=== PATIENT | female | born 1970 | race Hispanic/Latino ===

== ENCOUNTER 2018-07-19 20:55 | Observation (INO) | payer SELFPAY ==
[2018-07-19 20:55] VITALS: BMI 61.2
--- NOTE | 2018-07-19 21:40 | C.PDOC ---
History Of Present Illness 48 year old morbidly obese female with a Hx of HTN presents to the ER with a complaint of left sided chest pain intermittently since yesterday, states midsternal pressure. no h/ o of stress test. associated with a dry cough. Denies fever or other complaints. Time Seen by Provider: 07/19/18 21:37 Chief Complaint (Nursing): Chest Pain History Per: Patient History/Exam Limitations: no limitations Onset/Duration Of Symptoms: Days (Yesterday), Intermittent Episodes Current Symptoms Are (Timing): Still Present Associated Symptoms: denies: Nausea, Dyspnea, Diaphoresis, Syncope Modifying Factors: None Exacerbating Factors: None Alleviating Factors: None Recent travel outside of the [place]: No Past Medical History Reviewed: Historical Data, Nursing Documentation, Vital Signs Vital Signs: Last Vital Signs Temp 98.2 F 07/19/18 21:06 Pulse 111 H 07/19/18 21:06 Resp 20 07/19/18 21:06 BP 136/82 07/19/18 21:06 Pulse Ox 100 07/19/18 21:06 - Medical History PMH: HTN Surgical History: Appendectomy - [facility] Procedures INJECT/INFUSE NEC (03/23/14) Family History: States: Unknown Family Hx - Social History Hx Tobacco Use: No Hx Alcohol Use: No Hx Substance Use: No - Immunization History Hx Tetanus Toxoid Vaccination: Yes Hx Influenza Vaccination: No Hx Pneumococcal Vaccination: No Review Of Systems Constitutional: Negative for: Fever, Chills Cardiovascular: Positive for: Chest Pain Respiratory: Positive for: Cough (Dry) Gastrointestinal: Negative for: Nausea, Vomiting Physical Exam - Physical Exam Appears: Non-toxic, Other (Morbidly obese) Skin: Normal Color, Warm, Dry Head: Atraumatic, Normacephalic Eye(s): bilateral: Normal Inspection Oral Mucosa: Moist Neck: Normal, Supple Chest: Symmetrical, No Tenderness Cardiovascular: Rhythm Regular Respiratory: Normal Breath Sounds, No Rales, No Rhonchi, No Wheezing Gastrointestinal/Abdominal: Soft, No Tenderness Back: No CVA Tenderness Neurological/Psych: Oriented x3, Normal Speech ED Course And Treatment - Laboratory Results Result Diagrams: 07/19/18 22:07 07/19/18 22:07 ECG: Interpreted By Me, Viewed By Me ECG Rhythm: Sinus Tachycardia ECG Interpretation: Normal Interpretation Of ECG: No ST/T wave changes Rate From EC O2 Sat by Pulse Oximetry: 100 (Room air) Pulse Ox Interpretation: Normal - Radiology CXR: Interpreted by Me, Viewed By Me CXR Interpretation: Yes: No Acute Disease. No: Infiltrates Medical Decision Making Medical Decision Making: cp ro acs pe EKG, blood work, and urinalysis ordered. cta neg asa given. accpeted by dr smith for obs. multiple cardiac rsik factor. Disposition - Disposition Disposition: HOSPITALIZED Disposition Time: 23:00 Condition: STABLE Forms: [employer] (Mauritian) - Clinical Impression Clinical Impression: Chest pain - Scribe Statement The provider has reviewed the documentation as recorded by the Scribe Krystian Mares All medical record entries made by the Scribe were at my direction and personally dictated by me. I have reviewed the chart and agree that the record accurately reflects my personal performance of the history, physical exam, medical decision making, and the department course for this patient. I have also personally directed, reviewed, and agree with the discharge instructions and disposition. Decision To Admit - Pt Status Changed To: Hospital Disposition Of: Observation - . Bed Request Type: Telemetry Admitting Physician: Best Smith Patient Diagnosis: Chest pain
[2018-07-19 22:11] LABS: BASO # 0.1 K/uL (0.0-0.2); EOS # 0.3 K/uL (0.0-0.7); EOS % 3.1 % (0.0-4.0); HEMOGLOBIN 11.2 g/dL (11.0-16.0); LYMPH # 3.4 K/uL (1.0-4.3); LYMPH % 39.5 % (20.0-40.0); MEAN CELL VOLUME 75.6 fL (81.0-99.0); MEAN CORPUSCULAR HEMOGLOBIN 24.9 pg (27.0-31.0); MEAN PLATELET VOLUME 8.9 fL (7.2-11.7); MONO # 0.8 K/uL (0.0-0.8); MONO % 9.4 % (0.0-10.0); RBC 4.51 Mil/uL (3.80-5.20); RED CELL DISTRIBUTION WIDTH 14.8 % (11.5-14.5); WHITE BLOOD COUNT 8.5 K/uL (4.8-10.8)
[2018-07-19 22:20] LABS: INR 1.1; PROTHROMBIN TIME 11.5 SECONDS (9.7-12.2)
[2018-07-19 22:29] LABS: ALBUMIN 4.3 g/dL (3.5-5.0); ALT/SGPT 21 U/L (9-52); AST/SGOT 25 U/L (14-36); BLOOD UREA NITROGEN 9 mg/dL (7-17); CALCIUM 9.2 mg/dl (8.6-10.4); GFR NON-AFRICAN AMERICAN > 60
[2018-07-19] MEDS ORDERED: Iodixanol 320 MG/ML 100 ML BOTTLE IV ONE (22:35)
[2018-07-19 22:41] LABS: SQUAMOUS EPITHIAL 2 /hpf (0-5); URINE BACTERIA MOD (<OCC); URINE BILIRUBIN NEGATIVE (NEGATIVE); URINE BLOOD 1+ (NEGATIVE); URINE CLARITY Clear (Clear); URINE COLOR Yellow (YELLOW); URINE GLUCOSE (UA) NORMAL (Normal); URINE LEUKOCYTE ESTERASE NEG Leu/uL (Negative); URINE PROTEIN NEGATIVE (NEGATIVE); URINE UROBILINOGEN NORMAL mg/dL (0.2-1.0)
[2018-07-19] MEDS ORDERED: cefTRIAXone 1 gm 1 GM/100 ML BAG IVPB ONE (23:24)
--- NOTE | 2018-07-19 23:46 | CP.PCM.HP ---
<Ariela Block P - Last Filed: 07/20/18 03:57> History of Present Illness - History of Present Illness History of Present Illness: H&P for hospitalist service. HPI: 48 year old female with PMHx of hypertension and obesity presents to the ED complaining of right sided chest pain that began yesterday while taking care of her grandchildren. Pain is described as sharp and stabbing and rated 6/10. Pain radiates to the right neck and right upper back. It worsens with movement, deep breathing, and swallowing. Pain improves with rest. Associated symptoms include intermittent nausea, mild dry cough and chills. Admits to heavy lifting. States she carries her 6 month old grandson and 5 year old grandaughter while babysitting them. Patient denies fever, palpitations, shortness of breath, diap horesis, rocha in vision, change in hearing, vomiting, diarrhea, abdominal pain, urinary frequency, dysuria, hematuria, melena, hematochezia, sick contacts, recent travel. PMHx: HTN, obesity PSHx: Appendectomy 20 years ago, 3 C-sections over 20 years ago Meds: Previously on Metoprolol Succinate 50mg daily, however has not been taking as cannot afford doctor's visit for refill. Allergies: NKDA Social: Denies tobacco, alcohol, drugs. Lives at home with , 2 children and 2 grandchildren. 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 Family Hx: Mother of vaginal cancer, father had DM, HTN and enlarged heart, Brother with enlarged heart, 2 sisters with chronic pain Advanced directive: Denies Proxy: : Marco Puente , Daughter: Manny Puente Code status: full code Present on Admission - Present on Admission Any Indicators Present on Admission: No Review of Systems - Constitutional Constitutional: Chills. absent: Fever, Frequent Falls, Headache, Increased Appetite, Malaise, Night Sweats, Snoring, Sleep Apnea - EENT Eyes: absent: Blind Spots, Blurred Vision, Change in Vision Nose/Mouth/Throat: absent: Nasal Congestion, Bleeding Gums, Dysphagia - Cardiovascular Cardiovascular: Chest Pain, Chest Pain with Activity. absent: Dyspnea on Exertion, Edema, Irregular Heart Rhythm, Leg Edema, Lightheadedness, Palpitations - Respiratory Respiratory: Cough (non-productive), Pain on Inspiration, Pain with Coughing. absent: Hemoptysis, Wheezing - Gastrointestinal Gastrointestinal: Nausea. absent: Abdominal Pain, Constipation, Diarrhea, Dysphagia, Heartburn, Hematochezia, Loose Stools, Melena, Vomiting - Genitourinary Genitourinary: absent: Difficulty Urinating, Dysuria, Hematuria, Nocturia, Urinary Frequency, Urinary Hesitance, Urinary Urgency - Musculoskeletal Musculoskeletal: Myalgias, Neck Pain - Integumentary Integumentary: absent: Change in Hair, Dry Skin, Pruritus, Rash, Skin Ulcer - Neurological Neurological: absent: Abnormal Speech, Dizziness, Numbness, Focal Weakness, Frequent Falls, Headaches, Loss of Vision, Memory Loss, Paresthesias, Radicular Pain, Syncope, Tingling, Tremor, Vertigo, Weakness - Hematologic/Lymphatic Hematologic: absent: Easy Bleeding, Easy Bruising Past Patient History - Infectious Disease Hx of Infectious Diseases: None - Past Social History Smoking Status: Never Smoked - CARDIAC Hx Hypertension: Yes - PSYCHIATRIC Hx Substance Use: No - SURGICAL HISTORY Hx Appendectomy: Yes - ANESTHESIA Hx Anesthesia: Yes Hx Anesthesia Reactions: No Meds Allergies/Adverse Reactions: Allergies Allergy/AdvReac Type Severity Reaction Status Date / Time No Known Allergies Allergy Verified 07/19/18 21:09 Physical Exam - Constitutional Appears: Non-toxic, No Acute Distress - Head Exam Head Exam: ATRAUMATIC, NORMOCEPHALIC - Eye Exam Eye Exam: EOMI, Normal appearance, PERRL - ENT Exam ENT Exam: Mucous Membranes Moist - Neck Exam Neck exam: Positive for: Full Rom, Normal Inspection, Tenderness (to cervical paraspinal muscles) - Respiratory Exam Respiratory Exam: Chest Wall Tenderness (to palpation of right chest ), Clear to Auscultation Bilateral, NORMAL BREATHING PATTERN. absent: Rales, Rhonchi, Wheezes - Cardiovascular Exam Cardiovascular Exam: Tachycardia, REGULAR RHYTHM, +S1, +S2. absent: JVD, Systolic Murmur - GI/Abdominal Exam GI & Abdominal Exam: Normal Bowel Sounds, Soft. absent: Distended, Firm, Guarding, Mass, Rebound, Rigid, Tenderness Additional comments: obese - Extremities Exam Extremities exam: Positive for: full ROM, normal capillary refill, normal inspection, pedal pulses present. Negative for: calf tenderness, joint swellin g, pedal edema, tenderness - Back Exam Additional comments: Tenderness and hypertonicity of R paracervical muscles and upper R trapezius. - Neurological Exam Neurological exam: Alert, CN II-XII Intact (grossly), Oriented x3 - Psychiatric Exam Psychiatric exam: Normal Affect, Normal Mood - Skin Skin Exam: Dry, Intact, Warm Additional comments: patches of brown skin noted to bilateral cheeks, otherwise normal. Results - Vital Signs Recent Vital Signs: Last Vital Signs Temp 98.8 F 07/19/18 22:40 Pulse 85 07/19/18 23:09 Resp 20 07/19/18 22:40 BP 114/74 07/19/18 22:40 Pulse Ox 99 07/19/18 22:40 - Labs Result Diagrams: 07/19/18 22:07 07/19/18 22:07 Labs: Laboratory Results - last 24 hr 07/19/18 07/19/18 07/19/18 22:07 22:07 22:07 WBC 8.5 RBC 4.51 Hgb 11.2 Hct 34.1 MCV 75.6 L MCH 24.9 L MCHC 33.0 RDW 14.8 H Plt Count 438 H D MPV 8.9 Neut % (Auto) 47.0 L Lymph % (Auto) 39.5 [place] % (Auto) 9.4 Eos % (Auto) 3.1 Baso % (Auto) 1.0 Neut # (Auto) 4.0 Lymph # (Auto) 3.4 [place] # (Auto) 0.8 Eos # (Auto) 0.3 Baso # (Auto) 0.1 PT 11.5 INR 1.1 APTT 28 D-Dimer, Quantitative 416 H Sodium 139 Potassium 3.7 Chloride 99 Carbon Dioxide 29 Anion Gap 14 BUN 9 Creatinine 0.6 L Est GFR ( Amer) > 60 Est GFR (Non-Af Amer) > 60 Random Glucose 103 Calcium 9.2 Total Bilirubin 0.4 AST 25 ALT 21 Alkaline Phosphatase 84 Troponin I < 0.0120 Total Protein 8.6 H Albumin 4.3 Globulin 4.2 H Albumin/Globulin Ratio 1.0 Urine Color Urine Clarity Urine pH Ur Specific [place] Urine Protein Urine Glucose (UA) Urine Ketones Urine Blood Urine Nitrate Urine Bilirubin Urine Urobilinogen Ur Leukocyte Esterase Urine WBC (Auto) Urine RBC (Auto) Ur Squamous Epith Cells Urine Bacteria Urine HCG, Qual 07/19/18 07/19/18 22:30 22:30 WBC RBC Hgb Hct MCV MCH MCHC RDW Plt Count MPV Neut % (Auto) Lymph % (Auto) [place] % (Auto) Eos % (Auto) Baso % (Auto) Neut # (Auto) Lymph # (Auto) [place] # (Auto) Eos # (Auto) Baso # (Auto) PT INR APTT D-Dimer, Quantitative Sodium Potassium Chloride Carbon Dioxide Anion Gap BUN Creatinine Est GFR ( Amer) Est GFR (Non-Af Amer) Random Glucose Calcium Total Bilirubin AST ALT Alkaline Phosphatase Troponin I Total Protein Albumin Globulin Albumin/Globulin Ratio Urine Color Yellow Urine Clarity Clear Urine pH 7.0 Ur Specific [place] 1.010 Urine Protein Negative Urine Glucose (UA) Normal Urine Ketones Negative Urine Blood 1+ H Urine Nitrate Positive H Urine Bilirubin Negative Urine Urobilinogen Normal Ur Leukocyte Esterase Neg Urine WBC (Auto) 2 Urine RBC (Auto) 3 Ur Squamous Epith Cells 2 Urine Bacteria Mod H Urine HCG, Qual Negative Assessment & Plan - Assessment and Plan (Free Text) Plan: 48 year old female with PMHx of hypertension and obesity presents to the ED complaining of right sided chest pain. Atypical Chest Pain -Likely secondary to muscle strain -EKG: NSR at 100, possible Q waves in leads 2 and 3 -Tropoin negative x2, follow with serial troponins at 4am and 10am -Observe on Tele -f/u TSH, T4 -f/u Mg, phosphorus -f/u lipid panel -UDS: negative -Tylenol 650mg PO Q6H PRN pain Possible UTI -UA:1+ blood, positive nitrate, moderate bacteria -Patient asymptomatic, dose of Rocephin started in ED -Rocephin 1gm IV x 1 day (07/20) -f/u urine culture and sensitivities Elevated D-dimer -D-dimer: 416 -Denies inactivity, recent surgery, or travel -CTA Chest: No evidence of central or segmental pulmonary embolism seen. (see full report) Abnormal RBC Indices -MCV: 75.6, MCH: 24.9, RDW: 14.8 -f/u total iron, ferritin, % saturation, TIBC -f/u stool occult blood -Patient has never had a colonoscopy. Patient counselled on importance of having a colonoscopy done as outpatient based on USPSTF and ACS guidelines. Thrombocytosis -Platelets: 438 -Likely secondary to acute phase reactant -Continue to monitor Hx of HTN -Patient previously on Metoprolol XL 50mg daily, however states she has not been taking it, as she has not been able to afford a doctor's visit for a refill. -Patient advised to follow up at [facility]. -Restart Metoprolol XL 50mg daily Obesity III -BMI: 44.9 -f/u TSH, T4 -f/u Lipid panel -f/u HgbA1c Prophylaxis -Lactobacillus 1cap PO Q12H -DVT risk score of 3 (age, BMI)-> start Lovenox 40mg SQ Q24H -Heart Healthy, 2gm sodium, low carb diet -GI prophylaxis not indicated at this time Case discussed with attending physician, Dr. Alvarez. <Best Alvarez - Last Filed: 07/21/18 02:16> Results - Vital Signs Recent Vital Signs: Last Vital Signs Temp 98.7 F 07/20/18 08:48 Pulse 61 07/20/18 08:48 Resp 17 07/20/18 08:48 BP 105/66 07/20/18 08:48 Pulse Ox 62 L 07/20/18 08:48 - Labs Result Diagrams: 07/20/18 05:02 07/20/18 05:02 Labs: Laboratory Results - last 24 hr 07/20/18 07/20/18 07/20/18 05:02 05:02 05:02 WBC RBC Hgb Hct MCV MCH MCHC RDW Plt Count MPV Neut % (Auto) Lymph % (Auto) [place] % (Auto) Eos % (Auto) Baso % (Auto) Neut # (Auto) Lymph # (Auto) [place] # (Auto) Eos # (Auto) Baso # (Auto) Sodium 138 Potassium 3.4 L Chloride 103 Carbon Dioxide 26 Anion Gap 13 BUN 6 L Creatinine 0.4 L Est GFR ( Amer) > 60 Est GFR (Non-Af Amer) > 60 Random Glucose 93 Hemoglobin A1c Calcium 8.4 L Phosphorus 3.8 Magnesium 1.8 % Saturation 10 L Ferritin 6.1 Troponin I < 0.0120 Triglycerides 66 Cholesterol 151 LDL Cholesterol Direct 91 HDL Cholesterol 45 Free T4 1.08 TSH 3rd Generation 3.34 07/20/18 07/20/18 07/20/18 05:02 05:02 05:02 WBC 7.4 RBC 4.41 Hgb 10.7 L Hct 33.1 L MCV 75.0 L MCH 24.3 L MCHC 32.4 L RDW 14.9 H Plt Count 414 H MPV 8.6 Neut % (Auto) 45.0 L Lymph % (Auto) 42.2 H [place] % (Auto) 9.4 Eos % (Auto) 2.6 Baso % (Auto) 0.8 Neut # (Auto) 3.3 Lymph # (Auto) 3.1 [place] # (Auto) 0.7 Eos # (Auto) 0.2 Baso # (Auto) 0.1 Sodium Potassium Chloride Carbon Dioxide Anion Gap BUN Creatinine Est GFR ( Amer) Est GFR (Non-Af Amer) Random Glucose Hemoglobin A1c 5.8 Calcium Phosphorus Magnesium % Saturation Ferritin Troponin I < 0.0120 Triglycerides Cholesterol LDL Cholesterol Direct HDL Cholesterol Free T4 TSH 3rd Generation 07/20/18 12:14 WBC RBC Hgb Hct MCV MCH MCHC RDW Plt Count MPV Neut % (Auto) Lymph % (Auto) [place] % (Auto) Eos % (Auto) Baso % (Auto) Neut # (Auto) Lymph # (Auto) [place] # (Auto) Eos # (Auto) Baso # (Auto) Sodium Potassium Chloride Carbon Dioxide Anion Gap BUN Creatinine Est GFR ( Amer) Est GFR (Non-Af Amer) Random Glucose Hemoglobin A1c Calcium Phosphorus Magnesium % Saturation Ferritin Troponin I < 0.0120 Triglycerides Cholesterol LDL Cholesterol Direct HDL Cholesterol Free T4 TSH 3rd Generation Attending/Attestation - Attestation I have personally seen and examined this patient.: Yes I have fully participated in the care of the patient.: Yes I have reviewed all pertinent clinical information: Yes Notes (Text): 07/21/18 02:15 This is a late entry. The patient was seen and examined with resident Dr. Block at the time of admission. History, Physical, Assessment and Plan, and all orders were gone over in detail with Dr. Block. Plan of care was also explained to the patient. Best Alvarez D.O.
[2018-07-20 01:14] LABS: BARBITURATES, UR NEGATIVE (NEGATIVE); BENZODIAZEPINES, UR NEGATIVE (NEGATIVE); OPIATES, UR NEGATIVE (NEGATIVE); PHENCYCLIDINE, UR NEGATIVE (NEGATIVE)
[2018-07-20] MEDS ORDERED: Enoxaparin 40 mg Syringe ONE (04:39)
[2018-07-20 05:06] LABS: BASO # 0.1 K/uL (0.0-0.2); BASO % 0.8 % (0.0-2.0); EOS # 0.2 K/uL (0.0-0.7); EOS % 2.6 % (0.0-4.0); HEMOGLOBIN 10.7 g/dL (11.0-16.0); LYMPH # 3.1 K/uL (1.0-4.3); LYMPH % 42.2 % (20.0-40.0); MEAN CORPUSCULAR HEMOGLOBIN 24.3 pg (27.0-31.0); MEAN CORPUSCULAR HGB CONC 32.4 g/dL (33.0-37.0); MEAN PLATELET VOLUME 8.6 fL (7.2-11.7); MONO # 0.7 K/uL (0.0-0.8); MONO % 9.4 % (0.0-10.0); NEUT # 3.3 K/uL (1.8-7.0); RBC 4.41 Mil/uL (3.80-5.20); RED CELL DISTRIBUTION WIDTH 14.9 % (11.5-14.5); WHITE BLOOD COUNT 7.4 K/uL (4.8-10.8)
[2018-07-20 05:34] LABS: LDL CHOLESTEROL 91 mg/dL (0-129)
[2018-07-20 05:58] LABS: FERRITIN 6.1 ng/mL
[2018-07-20 06:29] LABS: BLOOD UREA NITROGEN 6 mg/dL (7-17); CALCIUM 8.4 mg/dl (8.6-10.4); GFR NON-AFRICAN AMERICAN > 60; HDL CHOLESTEROL 45 mg/dL (30-70)
[2018-07-20] MEDS ORDERED: Lactobacillus Acidophilus 500 MU Cap PO SCH (08:00)
--- NOTE | 2018-07-20 08:17 | CT ---
Date of service: 07/19/2018 PROCEDURE: CT Chest with contrast (Pulmonary Angiogram) HISTORY: cp elevated dimer COMPARISON: Comparison is made to the previous study dated 10/18/2015 TECHNIQUE: Axial computed tomography images were obtained of the chest in the pulmonary arterial phase of enhancement. Coronal and sagittal reformatted images were created and reviewed. Intravenous contrast dose: 100 mL of Visipaque 320 intravenously Radiation dose: Total exam DLP = 437.65 mGy-cm. This CT exam was performed using one or more of the following dose reduction techniques: Automated exposure control, adjustment of the mA and/or kV according to patient size, and/or use of iterative reconstruction technique. FINDINGS: PULMONARY ARTERIES: Suboptimal opacification of pulmonary arteries. No pulmonary embolism. AORTA: No acute findings. No thoracic aortic aneurysm. No aortic atherosclerotic calcification or mural plaque present. LUNGS: Unremarkable. No nodule, mass or pulmonary consolidation. PLEURAL SPACES: Unremarkable. No effusion or pneumothorax. HEART: Upper normal limit/mildly enlarged. . No significant pericardial effusion. LYMPH NODES: No lymphadenopathy. BONES, CHEST WALL: Unremarkable. No fracture or destructive lesion OTHER FINDINGS: Unremarkable. IMPRESSION: No pulmonary embolus. No evidence of acute pulmonary disease. Preliminary report contains concordant findings was submitted by [facility].
[2018-07-20 08:51] VITALS: BP 105/66; PULSE 61; RESP 17; TEMP 98.7; O2SAT 62
--- NOTE | 2018-07-20 08:57 | RAD ---
Date of service: 07/19/2018 PROCEDURE: CHEST RADIOGRAPH, 1 VIEW HISTORY: chest pain COMPARISON: 05/16/2016. FINDINGS: LUNGS: The lungs are well inflated and clear. PLEURA: No pneumothorax or pleural effusion. CARDIOVASCULAR: The heart is normal in size. No aortic atherosclerotic calcifications present. OSSEOUS STRUCTURES: Within normal limits for the patient's age. VISUALIZED UPPER ABDOMEN: Normal. OTHER FINDINGS: None. IMPRESSION: No active pulmonary disease.
--- NOTE | 2018-07-20 09:42 | CP.PCM.PN ---
Subjective - Date & Time of Evaluation Date of Evaluation: 07/20/18 Time of Evaluation: 09:42 Objective - Vital Signs/Intake and Output Vital Signs (last 24 hours): Temp Pulse Resp BP Pulse Ox 98.7 F 61 17 105/66 62 L 07/20/18 08:48 07/20/18 08:48 07/20/18 08:48 07/20/18 08:48 07/20/18 08:48 - Medications Medications: Current Medications Acetaminophen (Tylenol 325mg Tab) 650 mg PO Q6H PRN PRN Reason: Pain, moderate (4-7) Last Admin: 07/20/18 03:00 Dose: 650 mg Enoxaparin Sodium (Lovenox) 40 mg SC DAILY AMMY Last Admin: 07/20/18 00:00 Dose: 40 mg Ceftriaxone Sodium 1 gm/ (Sodium Chloride) 100 mls @ 100 mls/hr IVPB DAILY AMMY; Protocol Lactobacillus Acidophilus (Bacid Acidophilus) 1 cap PO Q12H AMMY Metoprolol Succinate (Toprol Xl) 50 mg PO DAILY AMMY - Labs Labs: 07/20/18 05:02 07/20/18 05:02 PT 11.5 SECONDS (9.7-12.2) 07/19/18 22:07 INR 1.1 07/19/18 22:07 APTT 28 SECONDS (21-34) 07/19/18 22:07
[2018-07-20] MEDS ORDERED: Metoprolol Succinate 50 mg XL Tab PO SCH (10:00)
[2018-07-20] MEDS: Enoxaparin 40 mg Syringe SC SCH ×2 (11:09)
--- NOTE | 2018-07-20 11:27 | CP.PCM.DIS ---
<Daniel Jj - Last Filed: 07/20/18 16:26> Provider - Provider Date of Admission: 07/19/18 23:29 Attending physician: Best Alvarez MD Time Spent in preparation of Discharge (in minutes): 45 Diagnosis - Discharge Diagnosis (1) Musculoskeletal chest pain Status: Acute (2) Neck pain Status: Acute Hospital Course - Lab Results Lab Results: Most Recent Lab Values WBC 7.4 K/uL (4.8-10.8) 07/20/18 05:02 RBC 4.41 Mil/uL (3.80-5.20) 07/20/18 05:02 Hgb 10.7 g/dL (11.0-16.0) L 07/20/18 05:02 Hct 33.1 % (34.0-47.0) L 07/20/18 05:02 MCV 75.0 fL (81.0-99.0) L 07/20/18 05:02 MCH 24.3 pg (27.0-31.0) L 07/20/18 05:02 MCHC 32.4 g/dL (33.0-37.0) L 07/20/18 05:02 RDW 14.9 % (11.5-14.5) H 07/20/18 05:02 Plt Count 414 K/uL (130-400) H 07/20/18 05:02 MPV 8.6 fL (7.2-11.7) 07/20/18 05:02 Neut % (Auto) 45.0 % (50.0-75.0) L 07/20/18 05:02 Lymph % (Auto) 42.2 % (20.0-40.0) H 07/20/18 05:02 [place] % (Auto) 9.4 % (0.0-10.0) 07/20/18 05:02 Eos % (Auto) 2.6 % (0.0-4.0) 07/20/18 05:02 Baso % (Auto) 0.8 % (0.0-2.0) 07/20/18 05:02 Neut # (Auto) 3.3 K/uL (1.8-7.0) 07/20/18 05:02 Lymph # (Auto) 3.1 K/uL (1.0-4.3) 07/20/18 05:02 [place] # (Auto) 0.7 K/uL (0.0-0.8) 07/20/18 05:02 Eos # (Auto) 0.2 K/uL (0.0-0.7) 07/20/18 05:02 Baso # (Auto) 0.1 K/uL (0.0-0.2) 07/20/18 05:02 PT 11.5 SECONDS (9.7-12.2) 07/19/18 22:07 INR 1.1 07/19/18 22:07 APTT 28 SECONDS (21-34) 07/19/18 22:07 D-Dimer, Quantitative 416 ng/mlDDU (0-243) H 07/19/18 22:07 Sodium 138 mmol/L (132-148) 07/20/18 05:02 Potassium 3.4 mmol/L (3.6-5.2) L 07/20/18 05:02 Chloride 103 mmol/L (98-107) 07/20/18 05:02 Carbon Dioxide 26 mmol/L (22-30) 07/20/18 05:02 Anion Gap 13 (10-20) 07/20/18 05:02 BUN 6 mg/dL (7-17) L 07/20/18 05:02 Creatinine 0.4 mg/dL (0.7-1.2) L 07/20/18 05:02 Est GFR ( Amer) > 60 07/20/18 05:02 Est GFR (Non-Af Amer) > 60 07/20/18 05:02 Random Glucose 93 mg/dL (65-105) 07/20/18 05:02 Hemoglobin A1c 5.8 % (4.2-6.5) 07/20/18 05:02 Calcium 8.4 mg/dl (8.6-10.4) L 07/20/18 05:02 Phosphorus 3.8 mg/dL (2.5-4.5) 07/20/18 05:02 Magnesium 1.8 mg/dL (1.6-2.3) 07/20/18 05:02 % Saturation 10 (20-55) L 07/20/18 05:02 Ferritin 6.1 ng/mL 07/20/18 05:02 Total Bilirubin 0.4 mg/dL (0.2-1.3) 07/19/18 22:07 AST 25 U/L (14-36) 07/19/18 22:07 ALT 21 U/L (9-52) 07/19/18 22:07 Alkaline Phosphatase 84 U/L (38-126) 07/19/18 22:07 Troponin I < 0.0120 ng/mL (0.00-0.120) 07/20/18 05:02 Total Protein 8.6 g/dL (6.3-8.3) H 07/19/18 22:07 Albumin 4.3 g/dL (3.5-5.0) 07/19/18 22:07 Globulin 4.2 gm/dL (2.2-3.9) H 07/19/18 22:07 Albumin/Globulin Ratio 1.0 (1.0-2.1) 07/19/18 22:07 Triglycerides 66 mg/dL (0-149) 07/20/18 05:02 Cholesterol 151 mg/dL (0-199) 07/20/18 05:02 LDL Cholesterol Direct 91 mg/dL (0-129) 07/20/18 05:02 HDL Cholesterol 45 mg/dL (30-70) 07/20/18 05:02 Free T4 1.08 ng/dL (0.78-2.19) 07/20/18 05:02 TSH 3rd Generation 3.34 mIU/L (0.46-4.68) 07/20/18 05:02 Urine Color Yellow (YELLOW) 07/19/18 22:30 Urine Clarity Clear (Clear) 07/19/18 22:30 Urine pH 7.0 (5.0-8.0) 07/19/18 22:30 Ur Specific [place] 1.010 (1.003-1.030) 07/19/18 22:30 Urine Protein Negative mg/dL (NEGATIVE) 07/19/18 22:30 Urine Glucose (UA) Normal mg/dL (Normal) 07/19/18 22:30 Urine Ketones Negative mg/dL (NEGATIVE) 07/19/18 22:30 Urine Blood 1+ (NEGATIVE) H 07/19/18 22:30 Urine Nitrate Positive (NEGATIVE) H 07/19/18 22:30 Urine Bilirubin Negative (NEGATIVE) 07/19/18 22:30 Urine Urobilinogen Normal mg/dL (0.2-1.0) 07/19/18 22:30 Ur Leukocyte Esterase Neg [place]/uL (Negative) 07/19/18 22:30 Urine WBC (Auto) 2 /hpf (0-5) 07/19/18 22:30 Urine RBC (Auto) 3 /hpf (0-3) 07/19/18 22:30 Ur Squamous Epith Cells 2 /hpf (0-5) 07/19/18 22:30 Urine Bacteria Mod (<OCC) H 07/19/18 22:30 Urine HCG, Qual Negative (NEGATIVE) 07/19/18 22:30 Urine Opiates Screen Negative (NEGATIVE) 07/20/18 00:55 Urine Methadone Screen Negative (NEGATIVE) 07/20/18 00:55 Ur Barbiturates Screen Negative (NEGATIVE) 07/20/18 00:55 Ur Phencyclidine Scrn Negative (NEGATIVE) 07/20/18 00:55 Ur Amphetamines Screen Negative (NEGATIVE) 07/20/18 00:55 U Benzodiazepines Scrn Negative (NEGATIVE) 07/20/18 00:55 U Oth Cocaine Metabols Negative (NEGATIVE) 07/20/18 00:55 U Cannabinoids Screen Negative (NEGATIVE) 07/20/18 00:55 - Hospital Course Hospital Course: 48 year old female with PMHx of hypertension and obesity presents to the ED complaining of right sided chest pain that began yesterday while taking care of her grandchildren. Pain is described as sharp and stabbing and rated 6/10. Pain radiates to the right neck and right upper back. EKG showed NSR at 100. Troponins were negative x3. CXR showed no active disease. Chest CT showed no PE, no acute pulmonary disease. UA was positive for nitrates and bacteria, patient is asymptomatic. Over the course of her stay, patient was treated with tylenol, rocephin, lovenox, and metoprolol. Upon discharge, patient was instructed to take Ciprofloxacin 500mg once daily by mouth for 3 days and Cyclobenzaprine 10mg once at bedtime as needed for pain. Also to resume all medications as prescribed by your primary care doctor. She was instructed to follow up with your primary care doctor or [facility] clinic. She was also instructed to return to the emergency room for worsening or newly-concerning symptoms. Patient is m edically stable for discharge to home. Discharge Exam - Head Exam Head Exam: ATRAUMATIC, NORMOCEPHALIC - Additional Findings Additional findings: - Constitutional Appears: Non-toxic, No Acute Distress - Head Exam Head Exam: ATRAUMATIC, NORMOCEPHALIC - Eye Exam Eye Exam: EOMI, Normal appearance, PERRL - ENT Exam ENT Exam: Mucous Membranes Moist - Neck Exam Neck exam: Positive for: Full Rom, Normal Inspection, Tenderness (to cervical paraspinal muscles) - Respiratory Exam Respiratory Exam: Chest Wall Tenderness (to palpation of right chest ), Clear to Auscultation Bilateral, NORMAL BREATHING PATTERN. absent: Rales, Rhonchi, Wheezes - Cardiovascular Exam Cardiovascular Exam: Tachycardia, REGULAR RHYTHM, +S1, +S2. absent: JVD, Systolic Murmur - GI/Abdominal Exam GI & Abdominal Exam: Normal Bowel Sounds, Soft. absent: Distended, Firm, Guarding, Mass, Rebound, Rigid, Tenderness Additional comments: obese - Extremities Exam Extremities exam: Positive for: full ROM, normal capillary refill, normal inspection, pedal pulses present. Negative for: calf tenderness, joint swelling, pedal edema, tenderness - Back Exam Additional comments: Tenderness and hypertonicity of R paracervical muscles and upper R trapezius. - Neurological Exam Neurological exam: Alert, CN II-XII Intact (grossly), Oriented x3 - Psychiatric Exam Psychiatric exam: Normal Affect, Normal Mood - Skin Skin Exam: Dry, Intact, Warm Additional comments: patches of brown skin noted to bilateral cheeks, otherwise normal. Discharge Plan - Discharge Medications Prescriptions: RX: Ciprofloxacin HCl [Cipro] 500 mg PO DAILY #3 tablet RX: Cyclobenzaprine HCl 10 mg PO HS PRN #10 tablet PRN Reason: Pain, Moderate (4-7) RX: Metoprolol Succinate XL [Toprol XL] 50 mg PO DAILY #30 tab - Follow Up Plan Condition: STABLE Disposition: HOME/ ROUTINE Instructions: High Blood Pressure in Adults, Ciprofloxacin (Systemic), Heart Healthy Diet, Urinary Tract Infection, Adult (DC), Chest Pain (DC), Cyclobenzaprine Additional Instructions: 1. Please take Ciprofloxacin 500mg once daily by mouth for 3 days and Cyclobenzaprine 10mg once at bedtime as needed for pain. 2. Resume all medications as prescribed by your primary care doctor. 3. Follow up with your primary care doctor or [facility] 4. Resume diet and activity as tolerated. Get plenty of rest and avoid any heavy lifting. 5. Return to the emergency room for worsening or newly-concerning symptoms. Referrals: [facility] [Outside] <Simi Correa - Last Filed: 07/20/18 17:54> Provider - Provider Date of Admission: 07/19/18 23:29 Attending physician: Best Alvarez MD Hospital Course - Lab Results Lab Results: Most Recent Lab Values WBC 7.4 K/uL (4.8-10.8) 07/20/18 05:02 RBC 4.41 Mil/uL (3.80-5.20) 07/20/18 05:02 Hgb 10.7 g/dL (11.0-16.0) L 07/20/18 05:02 Hct 33.1 % (34.0-47.0) L 07/20/18 05:02 MCV 75.0 fL (81.0-99.0) L 07/20/18 05:02 MCH 24.3 pg (27.0-31.0) L 07/20/18 05:02 MCHC 32.4 g/dL (33.0-37.0) L 07/20/18 05:02 RDW 14.9 % (11.5-14.5) H 07/20/18 05:02 Plt Count 414 K/uL (130-400) H 07/20/18 05:02 MPV 8.6 fL (7.2-11.7) 07/20/18 05:02 Neut % (Auto) 45.0 % (50.0-75.0) L 07/20/18 05:02 Lymph % (Auto) 42.2 % (20.0-40.0) H 07/20/18 05:02 [place] % (Auto) 9.4 % (0.0-10.0) 07/20/18 05:02 Eos % (Auto) 2.6 % (0.0-4.0) 07/20/18 05:02 Baso % (Auto) 0.8 % (0.0-2.0) 07/20/18 05:02 Neut # (Auto) 3.3 K/uL (1.8-7.0) 07/20/18 05:02 Lymph # (Auto) 3.1 K/uL (1.0-4.3) 07/20/18 05:02 [place] # (Auto) 0.7 K/uL (0.0-0.8) 07/20/18 05:02 Eos # (Auto) 0.2 K/uL (0.0-0.7) 07/20/18 05:02 Baso # (Auto) 0.1 K/uL (0.0-0.2) 07/20/18 05:02 PT 11.5 SECONDS (9.7-12.2) 07/19/18 22:07 INR 1.1 07/19/18 22:07 APTT 28 SECONDS (21-34) 07/19/18 22:07 D-Dimer, Quantitative 416 ng/mlDDU (0-243) H 07/19/18 22:07 Sodium 138 mmol/L (132-148) 07/20/18 05:02 Potassium 3.4 mmol/L (3.6-5.2) L 07/20/18 05:02 Chloride 103 mmol/L (98-107) 07/20/18 05:02 Carbon Dioxide 26 mmol/L (22-30) 07/20/18 05:02 Anion Gap 13 (10-20) 07/20/18 05:02 BUN 6 mg/dL (7-17) L 07/20/18 05:02 Creatinine 0.4 mg/dL (0.7-1.2) L 07/20/18 05:02 Est GFR ( Amer) > 60 07/20/18 05:02 Est GFR (Non-Af Amer) > 60 07/20/18 05:02 Random Glucose 93 mg/dL (65-105) 07/20/18 05:02 Hemoglobin A1c 5.8 % (4.2-6.5) 07/20/18 05:02 Calcium 8.4 mg/dl (8.6-10.4) L 07/20/18 05:02 Phosphorus 3.8 mg/dL (2.5-4.5) 07/20/18 05:02 Magnesium 1.8 mg/dL (1.6-2.3) 07/20/18 05:02 % Saturation 10 (20-55) L 07/20/18 05:02 Ferritin 6.1 ng/mL 07/20/18 05:02 Total Bilirubin 0.4 mg/dL (0.2-1.3) 07/19/18 22:07 AST 25 U/L (14-36) 07/19/18 22:07 ALT 21 U/L (9-52) 07/19/18 22:07 Alkaline Phosphatase 84 U/L (38-126) 07/19/18 22:07 Troponin I < 0.0120 ng/mL (0.00-0.120) 07/20/18 12:14 Total Protein 8.6 g/dL (6.3-8.3) H 07/19/18 22:07 Albumin 4.3 g/dL (3.5-5.0) 07/19/18 22:07 Globulin 4.2 gm/dL (2.2-3.9) H 07/19/18 22:07 Albumin/Globulin Ratio 1.0 (1.0-2.1) 07/19/18 22:07 Triglycerides 66 mg/dL (0-149) 07/20/18 05:02 Cholesterol 151 mg/dL (0-199) 07/20/18 05:02 LDL Cholesterol Direct 91 mg/dL (0-129) 07/20/18 05:02 HDL Cholesterol 45 mg/dL (30-70) 07/20/18 05:02 Free T4 1.08 ng/dL (0.78-2.19) 07/20/18 05:02 TSH 3rd Generation 3.34 mIU/L (0.46-4.68) 07/20/18 05:02 Urine Color Yellow (YELLOW) 07/19/18 22:30 Urine Clarity Clear (Clear) 07/19/18 22:30 Urine pH 7.0 (5.0-8.0) 07/19/18 22:30 Ur Specific [place] 1.010 (1.003-1.030) 07/19/18 22:30 Urine Protein Negative mg/dL (NEGATIVE) 07/19/18 22:30 Urine Glucose (UA) Normal mg/dL (Normal) 07/19/18 22:30 Urine Ketones Negative mg/dL (NEGATIVE) 07/19/18 22:30 Urine Blood 1+ (NEGATIVE) H 07/19/18 22:30 Urine Nitrate Positive (NEGATIVE) H 07/19/18 22:30 Urine Bilirubin Negative (NEGATIVE) 07/19/18 22:30 Urine Urobilinogen Normal mg/dL (0.2-1.0) 07/19/18 22:30 Ur Leukocyte Esterase Neg [place]/uL (Negative) 07/19/18 22:30 Urine WBC (Auto) 2 /hpf (0-5) 07/19/18 22:30 Urine RBC (Auto) 3 /hpf (0-3) 07/19/18 22:30 Ur Squamous Epith Cells 2 /hpf (0-5) 07/19/18 22:30 Urine Bacteria Mod (<OCC) H 07/19/18 22:30 Urine HCG, Qual Negative (NEGATIVE) 07/19/18 22:30 Urine Opiates Screen Negative (NEGATIVE) 07/20/18 00:55 Urine Methadone Screen Negative (NEGATIVE) 07/20/18 00:55 Ur Barbiturates Screen Negative (NEGATIVE) 07/20/18 00:55 Ur Phencyclidine Scrn Negative (NEGATIVE) 07/20/18 00:55 Ur Amphetamines Screen Negative (NEGATIVE) 07/20/18 00:55 U Benzodiazepines Scrn Negative (NEGATIVE) 07/20/18 00:55 U Oth Cocaine Metabols Negative (NEGATIVE) 07/20/18 00:55 U Cannabinoids Screen Negative (NEGATIVE) 07/20/18 00:55 Attending/Attestation - Attestation I have personally seen and examined this patient.: Yes I have fully participated in the care of the patient.: Yes I have reviewed all pertinent clinical information, including history, physical exam and plan: Yes
[2018-07-20] MEDS ORDERED: Influenza Vaccine 60 MCG/0.5 ML SYR (3 yr & up) IM ONE (13:00)
--- NOTE | 2018-07-20 23:36 | CARD ---
APPROVED REPORT Date of service: 07/19/2018 EKG Measurement Heart [id number] <Conclusion> Sinus tachycardia Cannot rule out Inferior infarct, age undetermined Abnormal ECG
[2018-07-21] MEDS ORDERED: Influenza Vaccine 60 MCG/0.5 ML SYR (3 yr & up) IM ONE (10:00)
[2018-07-21] MEDS ORDERED: Pneumococcal 23-Valent Vaccine IM ONE (10:00)
== END 2018-07-20 14:15 | disposition home or self-care (01) ==
LOC: C.ER 20:55 → C.9E 23:29 → C.5S 07-20 09:16
PROVIDERS: ADMIT Family Medicine; ATTEND Family Medicine
DX: R07.89 Other chest pain (principal); M54.2 Cervicalgia; I10 Essential (primary) hypertension; E66.9 Obesity, unspecified; R79.1 Abnormal coagulation profile; Z90.49 Acquired absence of other specified parts of digestive tract
CPT/HCPCS: 36415; 71045; 71275; 80048; 80053; 80061; 81001; 82728; 83036; 83735; 84100; 84439; 84443; 84484; 84703; 85025; 85378; 85610; 85730; 87086; 87181; 90674; 93005; 96365; 96372; 99285; G0008; G0378; G0480; J0696; J1650; Q9967

== ENCOUNTER 2018-07-31 23:26 | Emergency (ER) | payer SELFPAY ==
[2018-07-31 23:26] VITALS: BMI 61.2
[2018-07-31 23:42] VITALS: BP 135/85; PULSE 120; RESP 20; TEMP 98.4; O2SAT 100
--- NOTE | 2018-08-01 00:05 | C.PDOC ---
History Of Present Illness 48 year old female presents to the ER with a complaint of right shoulder pain intermittently for the past 2 weeks. Patient was seen 2 weeks ago for similar complaint, she has been on motrin since then with no relief, she was advised to follow up with PMD but has not been able to. Denies trauma, weakness, numbness, chest pain, or SOB. Time Seen by Provider: 07/31/18 23:45 Chief Complaint (Nursing): Upper Extremity Problem/Injury History Per: Patient History/Exam Limitations: no limitations Onset/Duration Of Symptoms: Days, Intermittent Episodes Current Symptoms Are (Timing): Still Present Recent travel outside of the [place]: No Past Medical History Reviewed: Historical Data, Nursing Documentation, Vital Signs Vital Signs: Last Vital Signs Temp 98.4 F 07/31/18 23:38 Pulse 120 H 07/31/18 23:38 Resp 20 07/31/18 23:38 BP 135/85 07/31/18 23:38 Pulse Ox 100 07/31/18 23:38 - Medical History PMH: HTN Surgical History: Appendectomy - [facility] Procedures INJECT/INFUSE NEC (03/23/14) Family History: States: Unknown Family Hx - Social History Hx Tobacco Use: No Hx Alcohol Use: No Hx Substance Use: No - Immunization History Hx Tetanus Toxoid Vaccination: Yes Hx Influenza Vaccination: No Hx Pneumococcal Vaccination: No Review Of Systems Cardiovascular: Negative for: Chest Pain Respiratory: Negative for: Shortness of Breath Musculoskeletal: Positive for: Shoulder Pain (Right) Neurological: Negative for: Weakness, Numbness Physical Exam - Physical Exam Appears: Non-toxic, Other (Obese) Skin: Normal Color, Warm, Dry Head: Atraumatic, Normacephalic Eye(s): bilateral: Normal Inspection Oral Mucosa: Moist Extremity: Normal ROM (x4), Capillary Refill (<2 second), Other (Tenderness on palpation to anterior right shoulder subscapular area, full ROM of right shoulder with pain) Neurological/Psych: Oriented x3, Normal Speech, Normal Motor, Normal Sensation Gait: Steady ED Course And Treatment O2 Sat by Pulse Oximetry: 100 (Room air) Pulse Ox Interpretation: Normal Progress Note: Toradol administered. Patient reports improvement of pain, she is resting comfortably in the ER in no acute distress, vitals are stable, will discharge home with instructions to follow up with PMD. Disposition Counseled Patient/Family Regarding: Diagnosis, Need For Followup, Rx Given - Disposition Referrals: [facility] [Outside] Disposition: HOME/ ROUTINE Disposition Time: 00:03 Condition: STABLE Additional Instructions: Follow up inn clinic Apply warm compress to area Take motrin and tylenol for pain Return to ER if symptoms worsen Instructions: Shoulder Pain (DC) Forms: [employer] ([place]) - Clinical Impression Clinical Impression: Right shoulder pain - PA / [employer]TER / Resident Statement MD/DO has reviewed & agrees with the documentation as recorded. - Scribe Statement The provider has reviewed the documentation as recorded by the Scribe Krystian Mares All medical record entries made by the Veronicaibraciel were at my direction and personally dictated by me. I have reviewed the chart and agree that the record accurately reflects my personal performance of the history, physical exam, medical decision making, and the department course for this patient. I have also personally directed, reviewed, and agree with the discharge instructions and disposition.
== END 2018-08-01 00:56 | disposition home or self-care (01) ==
LOC: C.ER 23:26
DX: M25.511 Pain in right shoulder (principal)
CPT/HCPCS: 96372; 99283; J1885